=== PATIENT | male | born 1965 | race Two or more races ===

== ENCOUNTER 2019-02-24 10:41 | Emergency (ER) | payer OTHER ==
--- NOTE | 2019-02-24 11:12 | ER Document Report ---
ED Medical Screen (RME) - General Chief Complaint: Leg Swelling Stated Complaint: LEFT LEG PAIN Time Seen by Provider: 02/24/19 11:07 Mode of Arrival: Wheelchair Information source: Patient Notes: 54-year-old male presented to ED for complaint of left lower leg swelling and pain. He states that this moment is not hurting but at times it does hurt. He states it is been swelling for a while. He states he went on long trip and it did get worse. He states he does smoke 1/2 pack a day and has had a history of a DVT that they started him on aspirin for but there is no other treatment for i t. He said is been several years ago. He is alert oriented respirations regular and unlabored speaking in full sentences walks with a even steady gait. I have greeted and performed a rapid initial assessment of this patient. A comprehensive ED assessment and evaluation of the patient, analysis of test results and completion of medical decision making process will be conducted by an additional ED providers. TRAVEL OUTSIDE OF THE [place] IN LAST 30 DAYS: Yes - Related Data Allergies/Adverse Reactions: No Known Allergies Allergy (Unverified 02/24/19 11:04) Physical Exam - Vital signs Vitals: Temp Pulse Resp BP Pulse Ox 98.2 F 69 16 148/88 H 100 02/24/19 10:46 02/24/19 10:46 02/24/19 10:46 02/24/19 10:46 02/24/19 10:46 Course - Vital Signs Vital signs: Temp Pulse Resp BP Pulse Ox 98.2 F 69 16 148/88 H 100 02/24/19 10:46 02/24/19 10:46 02/24/19 10:46 02/24/19 10:46 02/24/19 10:46
[2019-02-24 12:24] LABS: ABSOLUTE BASOPHILS # (AUTO) 0.1 10^3/uL (0.0-0.2); ABSOLUTE EOSINOPHILS # (AUTO) 0.2 10^3/uL (0.0-0.6); ABSOLUTE MONOCYTES (AUTO) 0.4 10^3/uL (0.1-1.4); BASOPHILS % (AUTO) 0.9 % (0-2); EOSINOPHILS % (AUTO) 2.4 % (0-6); HEMATOCRIT 42.6 % (37.9-51.0); LYMPHOCYTES % (AUTO) 30.4 % (13-45); MEAN CORPUSCULAR HEMOGLOBIN 29.8 pg (27.0-33.4); MEAN CORPUSCULAR HGB CONC 35.1 g/dL (32.0-36.0); MEAN CORPUSCULAR VOLUME 85 fl (80-97); MONOCYTES % (AUTO) 6.3 % (3-13); PLATELET COUNT 259 10^3/uL (150-450); RED BLOOD COUNT 5.03 10^6/uL (4.35-5.55); RED CELL DISTRIBUTION WIDTH 13.7 % (11.5-14.0); TOTAL CELLS COUNTED % (AUTO) 100 %; WHITE BLOOD COUNT 6.6 10^3/uL (4.0-10.5)
[2019-02-24 12:28] LABS: APPEARANCE,URINE CLEAR; BILIRUBIN,URINE NEGATIVE (NEGATIVE); COLOR,URINE YELLOW; GLUCOSE, URINE NEGATIVE (NEGATIVE); KETONES,URINE NEGATIVE (NEGATIVE); LEUKOCYTE ESTERASE,URINE NEGATIVE (NEGATIVE); NITRITE,URINE NEGATIVE (NEGATIVE); PROTEIN,URINE NEGATIVE (NEGATIVE)
[2019-02-24 12:29] LABS: PROTHROMBIN TIME 13.2 SEC (11.4-15.4)
[2019-02-24 12:30] LABS: PARTIAL THROMBOPLASTIN TIME 27.4 SEC (23.5-35.8)
[2019-02-24 12:46] LABS: ALBUMIN 4.2 g/dL (3.5-5.0); ALKALINE PHOSPHATASE 64 U/L (38-126); ANION GAP 8 (5-19); ASPARTATE AMINO TRANSFERASE 30 U/L (17-59); BILIRUBIN,DIRECT 0.1 mg/dL (0.0-0.4); BILIRUBIN,TOTAL 0.7 mg/dL (0.2-1.3); BLOOD UREA NITROGEN 16 mg/dL (7-20); CALCIUM 9.4 mg/dL (8.4-10.2); CARBON DIOXIDE 26 mmol/L (22-30); CHLORIDE 105 mmol/L (98-107); CREATINE KINASE 293 U/L (55-170); GLUCOSE 89 mg/dL (75-110); POTASSIUM 4.1 mmol/L (3.6-5.0); TOTAL PROTEIN 6.7 g/dL (6.3-8.2)
--- NOTE | 2019-02-24 14:17 | RADIOLOGY REPORT (SQ) ---
EXAM DESCRIPTION: VENOUS UNILATERAL LOWER COMPLETED DATE/TIME: 02/24/2019 2:07 pm REASON FOR STUDY: Left lower leg swelling pain at times COMPARISON: None. TECHNIQUE: Dynamic and static tracey scale and color images acquired of the left leg venous system. Se lected spectral images acquired with additional compression and augmentation maneuvers. The contralat eral common femoral vein and saphenofemoral junction were also imaged. Images stored on PACS. LIMITATIONS: None. FINDINGS: COMMON FEMORAL: Normal phasicity, compression and augmentation. No visualized echogenic ma terial on tracey scale. No defects on color images. FEMORAL: Normal compression and augmentation. No visualized echogenic material on tracey scale. No defe cts on color images. POPLITEAL: Normal compression, augmentation. No visualized echogenic material on tracey scale. No defec ts on color images. CALF VESSELS: Normal compression, augmentation. No visualized echogenic material on tracey scale. No de fects on color images. GSV and SSV: Normal compression, augmentation. No visualized echogenic material on tracey scale. No def ects on color images. ANY DEEP VENOUS INSUFFICIENCY: Not evaluated. ANY EVIDENCE OF POPLITEAL CYST: No. OTHER: Thrombosed superficial varicosities in the subcutaneous tissues of the medial calf in the clin ically symptomatic area. CONTRALATERAL COMMON FEMORAL VEIN AND SAPHENOFEMORAL JUNCTION: Normal phasicity, compression and augmentation. No visualized echogenic material on tracey scale. No de fects on color images. IMPRESSION: NO EVIDENCE DVT OR SVT IN THE LEFT LEG. THERE ARE THROMBOSED SUPERFICIAL VARICOSITIES IN THE SUBCUTANEOUS TISSUES OF THE MEDIAL CALF IN THE A MALACHI OF CONCERN. COMMENT: Preliminary report was called by the technologist to the referring clinician's office at t he time of the exam. TECHNICAL DOCUMENTATION: JOB ID: [id number] [employer]- All Rights Reserved Reading location - IP/workstation name: [email or web address]
--- NOTE | 2019-02-24 15:09 | ER Document Report ---
ED Extremity Problem, Lower - General Chief Complaint: Leg Swelling Stated Complaint: LEFT LEG PAIN Time Seen by Provider: 02/24/19 11:07 Primary Care Provider: BECK DALY MD [Primary Care Provider] - Follow up as needed Mode of Arrival: Wheelchair TRAVEL OUTSIDE OF THE [place] IN LAST 30 DAYS: Yes - HPI Notes: This is a 54-year-old gentleman who presents with a complaint of left lower extremity swelling and pain for the past couple of days. Patient states that he recently came from a trip to [place] and it was a long drive. He denies any cardiopulmonary symptoms. He denies any trauma. He describes the symptoms as mild. There are no obvious aggravating or relieving factors. He denies any trauma. - Related Data Allergies/Adverse Reactions: No Known Allergies Allergy (Unverified 02/24/19 11:04) Past Medical History - General Information source: Patient - Social History Smoking Status: Current Every Day Smoker Frequency of alcohol use: Rare Drug Abuse: None Family History: Reviewed & Not Pertinent Patient has suicidal ideation: No Patient has homicidal ideation: No Review of Systems - Review of Systems Cardiovascular: denies: Chest pain, Palpitations, Heart racing Respiratory: denies: Cough Gastrointestinal: denies: Abdominal pain Musculoskeletal: Muscle pain, Leg swelling -: Yes All other systems reviewed and negative Physical Exam - Vital signs Vitals: Temp Pulse Resp BP Pulse Ox 98.2 F 69 16 148/88 H 100 02/24/19 10:46 02/24/19 10:46 02/24/19 10:46 02/24/19 10:46 02/24/19 10:46 - General General appearance: Appears well, Alert - Respiratory Respiratory status: No respiratory distress Chest status: Nontender Breath sounds: Normal Chest palpation: Normal - Cardiovascular Rhythm: Regular Heart sounds: Normal auscultation Murmur: No - Abdominal Inspection: Normal Distension: No distension Bowel sounds: Normal Tenderness: Nontender Organomegaly: No organomegaly - Extremities General upper extremity: Normal inspection, Nontender, Normal color, Normal ROM, Normal temperature General lower extremity: Normal inspection, Nontender - Do not appreciate any significant swelling or tenderness of the left lower extremity. No calf tenderness. Negative Homans sign. Normal distal neurovascular exam of the left lower extremity., Normal color, Normal ROM, Normal temperature, Normal weight bearing. No: Ariela's sign - Neurological Neuro grossly intact: Yes Cognition: Normal Orientation: AAOx4 Lisa Coma Scale Eye Opening: Spontaneous Lisa Coma Scale Verbal: Oriented Bowie Coma Scale Motor: Obeys Commands Bowie Coma Scale Total: 15 Speech: Normal Motor strength normal: LUE, RUE, LLE, RLE Sensory: Normal - Skin Skin Temperature: Warm Skin Moisture: Dry Skin Color: Normal Course - Re-evaluation Re-evalutation: 02/24/19 15:08 Differential diagnosis includes DVT versus superficial, phlebitis versus varicosity versus muscle skeletal strain. 02/24/19 17:10 Patient is doing well. Labs and imaging reviewed and discussed with patient and family. Patient stable for discharge. - Vital Signs Vital signs: Temp Pulse Resp BP Pulse Ox 97.7 F 51 L 16 154/95 H 99 02/24/19 15:22 02/24/19 15:22 02/24/19 10:46 02/24/19 15:22 02/24/19 15:22 - Laboratory Result Diagrams: 02/24/19 12:05 02/24/19 12:05 Laboratory results interpreted by me: 02/24/19 02/24/19 12:05 12:10 Creatine Kinase 293 H Urine Urobilinogen 4.0 H Discharge - Discharge Clinical Impression: Leg pain, left Varicose vein of leg Qualifiers: Varicose vein complication: unspecified Laterality: left Qualified Code(s): I83.92 - Asymptomatic varicose veins of left lower extremity Condition: Good Disposition: HOME, SELF-CARE Instructions: Leg Pain Nonspecific ([facility]), Varicose Veins ([facility]) Prescriptions: RX: Naproxen 500 mg PO BID PRN #14 tablet PRN Reason: Referrals: BECK DALY MD [Primary Care Provider] - Follow up as needed
[2019-02-24 15:24] VITALS: BP 154/95
== END 2019-02-24 15:28 | disposition home or self-care (01) ==
LOC: ER 10:41
DX: I83.812 Varicose veins of left lower extremity with pain (principal); F17.200 Nicotine dependence, unspecified, uncomplicated
CPT/HCPCS: 36415; 80053; 81001; 82550; 85025; 85610; 85730; 93971